=== PATIENT | male | born 1990 | race Asian ===

== ENCOUNTER 2017-08-16 17:50 | Emergency (ER) | payer SELFPAY ==
[~2017-08-16] VITALS: Ht 170.2 cm; Wt 68.0 kg
[2017-08-16] MEDS ORDERED: IBUPROFEN 600MG TABLET PO ONE (21:00)
[2017-08-16 21:21] VITALS: BP 122/69
== END 2017-08-16 21:26 | disposition home or self-care (01) ==
LOC: ER 18:30
DX: S20.211A Contusion of right front wall of thorax, initial encounter (principal); V43.52XA Car driver injured in collision with other type car in traffic accident, initial encounter; Y93.89 Activity, other specified; Y92.410 Unspecified street and highway as the place of occurrence of the external cause; Y99.8 Other external cause status
CPT/HCPCS: 71111; 99284